=== PATIENT | male | born 1950 | race Caucasian/White ===

== ENCOUNTER 2019-05-22 14:04 | Inpatient (IN) | payer MEDICARE, MEDICAID ==
[2019-05-22] MEDS ORDERED: Sodium Chloride 0.9% 1,000 ML IV ONE (14:18)
--- NOTE | 2019-05-22 14:22 | ED Physician Chart ---
ED Chief Complaint/HPI - Patient Information Date Seen:: 05/22/19 Time Seen:: 14:10 Chief Complaint:: Weakness History of Present Illness:: onset x 2 days of weakness and fatigue; no report of trauma, H/As, neck pain, cough, C/P, SOB, Abd. Pain, A/N/V/D/C, fever, chills, or urinary s/s Historian:: Patient, EMS Review:: Nurse's Note Reviewed, Old Chart Reviewed, EMS run form Reviewed ED Review of Systems - Review of Systems General/Constitutional: No fever, No chills, No weight loss, Weakness, No diaphoresis, No edema, No loss of appetite Skin: No skin lesions, No rash, No bruising Head: No headache, No light-headedness Eyes: No loss of vision, No pain, No diplopia ENT: No earache, No nasal drainage, No sore throat, No tinnitus Neck: No neck pain, No swelling, No thyromegaly, No stiffness, No mass noted Cardio Vascular: No chest pain, No palpitations, No PND, No orthopnea, No edema Pulmonary: No SOB, No cough, No sputum, No wheezing GI: No nausea, No vomiting, No diarrhea, No pain, No melena, No hematochezia, No constipation, No hematemesis G/U: No dysuria, No frequency, No hematuria Musculoskeletal: No bone or joint pain, No back pain, No muscle pain Endocrine: No polyuria, No polydipsia Psychiatric: No prior psych history, No depression, No anxiety, No suicidal ideation, No homicidal ideation, No auditory hallucination, No visual hallucination Hematopoietic: No bruising, No lymphadenopathy Allergic/Immuno: No urticaria, No angioedema Neurological: No syncope, No focal symptoms, Weakness, No paresthesia, No headache, No seizure, No dizziness, No confusion, No vertigo ED Past Medical History - Past Medical History Obtainable: Yes Past Medical History: HTN Family History: HTN Social History: Non Smoker, No Alcohol, No Drug Use, Single, Care Facility Surgical History: None Psychiatricy History: None Medication: Reviewed Family Medical History - Family Member Mother History Unknown: Yes ED Physical Exam - Physical Examination General/Constitutional: Awake, Well-developed, well-nourished, Alert, No distress, GCS 15, Non-toxic appearing, Ambulatory Head: Atraumatic Eyes: Lids, conjuctiva normal, PERRL, EOMI Skin: Nl inspection, No rash, No skin lesions, No ecchymosis, Well hydrated, No lymphadenopathy ENMT: External ears, nose nl, TM canals nl, Nasal exam nl, Lips, teeth, gums nl , Oropharynx nl, Tonsils nl Neck: Nontender, Full ROM w/o pain, No JVD, No nuchal rigidity, No bruit, No mass, No stridor Respiratory: Nl effort/Exclusion, Clear to Auscultation, No Wheeze/Rhonchi/Rales Cardio Vascular: RRR, No murmur, gallop, rubs, NL S1 S2, Carotid/Femoral/Distal pulses equal bilaterally GI: No tenderness/rebounding/guarding, No organomegaly, No hernia, Normal BS's, Nondistended, No mass/bruits, No McBurney tenderness, Rectum exam nl : No CVA tenderness Extremities: No tenderness or effusion, Full ROM, normal strength in all extremities, No edema, Normal digits & nails Neuro/Psych: Alert/oriented, DTR's symmetric, Normal sensory exam, Normal motor strength, Judgement/insight normal, Mood normal, Normal gait, No focal deficits Misc: Normal back, No paraspinal tenderness ED Labs/Radiology/EKG Results - Lab Results Comments:: Reviewed - Radiology Results Comments:: Reviewed; NAD - EKG Interpretations EKG Time:: 14:54 Rate & Rhythm: 68; NSR Comments:: non-specific st-t changes ED Septic Shock - . Is Septic Shock (SBP<90, OR Lactate>4 mmol\L) present?: No ED Reassessment (Disposition) - Reassessment Reassessment Condition:: Improved - Diagnosis Diagnosis:: Weakness; Elevated Lactic Acid; Lactic Acidosis; Elevated Troponin; Hypoalbuminemia; Hypotension; Dehydration; Hypovolemia; UTI; Sepsis - Aftercare/Follow up Instructions Aftercare/Follow-Up Instructions:: Counseled pt regarding lab results/diagnosis & need follow up, Counseled pt & family regarding lab results/diagnosis & need follow up - Patient Disposition Discharge/Transfer:: Acute Care w/in this hosp Accepting Physician:: Dr. Milner Time Called:: 1600 Time Responded:: 16:00 Admitted to:: Telemetry Spoke to:: Dr. Milner Admitting Medical Physician:: Dr. Milner Condition at Disposition:: Stable, Improved
[2019-05-22 14:43] LABS: % BASOPHILS 0.3 % (0.0-2.0); % EOSINOPHILS 1.1 % (0.0-5.0); % LYMPHOCYTES 18.3 % (20.0-50.0); % MONOCYTES 6.9 % (2.0-10.0); % NEUTROPHILS 73.4 % (40.0-80.0); EOSINOPHILE ABSOLUTE 0.1 Th/cmm (0.1-0.4); HEMATOCRIT 42.6 % (41.0-60); HEMOGLOBIN 14.4 gm/dL (12-16); MEAN CORPUSCULAR HEMOGLOBIN 30.7 pg (27.0-31.0); MEAN CORPUSCULAR HGB CONC 33.7 pg (28.0-36.0); MONOCYTE ABSOLUTE 0.7 Th/cmm (0.3-1.0); PLATELET COUNT 284 Th/cmm (150-400); RED BLOOD COUNT 4.68 Mil/cmm (3.80-5.80); WHITE BLOOD COUNT 10.8 Th/cmm (4.8-10.8)
[2019-05-22 14:54] LABS: INR 0.96 (0.5-1.4)
[2019-05-22 14:58] LABS: ALB/GLOB RATIO 1.1 (1.0-1.8); ALBUMIN 3.8 gm/dL (4.2-5.5); ALKALINE PHOSPHATASE 88 U/L (34-104); AMYLASE SERUM 24 U/L (29-103); ANION GAP 12.8 (7.0-16.0); BILIRUBIN,TOTAL 0.2 mg/dL (0.3-1.0); BUN - UREA NITROGEN 19 mg/dL (7-25); CALCIUM SERUM 9.5 mg/dL (8.6-10.3); CARBON DIOXIDE 28.1 mEq/L (21.0-31.0); CHLORIDE 100 mEq/L (98-107); CREATININE - SERUM 0.8 mg/dL (0.7-1.3); CREATININE KINASE 73 U/L (30-223); GFR AFRICAN-AMERICAN > 60.0 ml/min (>90); GFR NON AFRICAN-AMERICAN > 60.0 ml/min; GLUCOSE 134 mg/dL (70-105); LIPASE 6 U/L (11-82); POTASSIUM SERUM 3.9 mEq/L (3.5-5.1); SGOT 9 U/L (13-39); SGPT/ALT 7 U/L (7-52); SODIUM SERUM 137 mEq/L (136-145); TOTAL PROTEIN,SERUM 7.2 gm/dL (6.0-8.3)
[2019-05-22 16:04] LABS: URINE SOURCE MIDSTREAM
[2019-05-22 16:05] LABS: URINE BILIRUBIN NEGATIVE (NEGATIVE); URINE BLOOD NEGATIVE (NEGATIVE); URINE GLUCOSE (UA) NEGATIVE (NEGATIVE); URINE KETONE NEGATIVE (NEGATIVE); URINE LEUKOCYTE ESTERASE NEGATIVE (NEGATIVE); URINE NITRATE NEGATIVE (NEGATIVE); URINE PH 7.5 (4.6 - 8.0); URINE PROTEIN NEGATIVE (NEGATIVE)
[2019-05-22 16:14] LABS: URINE CLARITY HAZY (CLEAR); URINE COLOR YELLOW; URINE MICROSCOPIC INDICATED? YES
[2019-05-22 16:16] LABS: URINE BACTERIA 1+ /hpf (NONE SEEN); URINE EPITHELIAL CELLS MODERATE /lpf (FEW); URINE RBC 0-2 /hpf (0-5)
[2019-05-22] MEDS ORDERED: cefTRIAXone 1 GM in Sodium Chloride 0.9% 50 ML IV ONE (16:24)
[2019-05-22] MEDS: 0.45% NS w/20 mEq KCl 1,000 ML IV SCH (20:45)
[2019-05-22] MEDS ORDERED: GLUCAGON HCl 1 MG KIT IM PRN (21:37)
[2019-05-22] MEDS ORDERED: Dextrose 50% 50 mL Abboject IVP PRN (21:37)
--- NOTE | 2019-05-22 22:53 | History & Physical ---
ADMIT DATE: 05/22/2019 CHIEF COMPLAINT: Confusion, generalized weakness. HISTORY OF PRESENT ILLNESS: The patient is a 69-year-old male with long history of hypertension, benign prostatic hypertrophy, dementia and psychosis, presented to the Emergency Room with generalized weakness, confusion. Initial workup significant for urinary infection, dehydration, admitted to the hospital, started on IV fluid, antibiotic, resume his home medication. The patient is a poor historian. PAST MEDICAL HISTORY: Significant for diabetes mellitus, hypertension, benign prostatic hypertrophy, and dementia. PAST SURGICAL HISTORY: No recent surgery. ALLERGIES: None. MEDICATIONS: Follow admission reconciliation. SOCIAL HISTORY: No smoking, no alcohol, no drug. FAMILY HISTORY: Noncontributory. REVIEW OF SYSTEMS: RENAL SYSTEM: No history of chronic renal disorder. CARDIOVASCULAR SYSTEM: He has history of hypertension. ENDOCRINE SYSTEM: He has history of diabetes mellitus. GASTROINTESTINAL SYSTEM: No upper or lower GI bleed. NEUROLOGICAL SYSTEM: No seizure disorder. SKELETOMUSCULAR SYSTEM: No muscular dystrophy. HEMATOLOGICAL SYSTEM: No bleeding tendencies. RESPIRATORY SYSTEM: No asthma. GENITOURINARY SYSTEM: No hematuria. Has benign prostatic hypertrophy. PHYSICAL EXAMINATION: GENERAL: He is awake, alert, confused. VITAL SIGNS: Temperature 97.5, heart rate 72, blood pressure 197/68. HEENT: Normocephalic. Pupils reactive to light and accommodation. Sclerae clear. NECK: Supple. Negative for lymphadenopathy, JVD or bruit. CHEST: Air bilaterally normal. No rhonchi or wheezing. HEART: S1, S2 normal. No gallop rhythm. ABDOMEN: Soft, bowel sounds positive. EXTREMITIES: No edema. NEUROLOGICAL: He is awake, coherent. No focal muscle deficits. LABORATORY DATA: White blood cell 10.8, hemoglobin 14.4, hematocrit 42.6, platelet is 284. Sodium 137, potassium 3.9, BUN 19, creatinine 0.8. Lactic acid 2.28. ASSESSMENT: 1. Lactic acidosis. 2. Urinary infection. 3. Dehydration. 4. Metabolic encephalopathy. 5. Diabetes mellitus. 6. Hypertension. 7. Benign prostatic hypertrophy. 8. History of dementia. PLAN: The patient is in the hospital under Dr. Milner's service, started on IV fluid, antibiotic, resume his home medication and diet, sliding scale with regular insulin coverage, Lovenox 40 subQ daily for DVT prophylaxis. The patient is a full code. [facility]# [id number]
[2019-05-23 05:48] VITALS: BP 124/78
[2019-05-23] MEDS: INSULIN LISPRO SLIDING SCALE 100 UNITS/ML UNIT SUBQ SCH ×4 (06:33→20:44)
[2019-05-23] MEDS: Lactulose 10 Gm/15 mL 30mL UDC PO SCH (08:57)
[2019-05-23] MEDS: Enoxaparin 40 mg/0.4 mL 0.4mL Syr SUBQ SCH (08:57)
[2019-05-23] MEDS ORDERED: [UNRECOGNIZED DRUG - OTHER] TP SCH (09:00)
[2019-05-23] MEDS ORDERED: CICLOPIROX TP SCH (09:00)
[2019-05-23] MEDS ORDERED: SKIN CLEANSER NO 40 TP SCH (09:00)
[2019-05-23] MEDS ORDERED: Non-Formulary Item 1 EA (Lactulose [Lactulose] 30 ML) PO SCH (09:00)
--- NOTE | 2019-05-23 10:25 | Diagnostic Imaging Report ---
Portable chest x-ray HISTORY: Pain There is a poor inspiration. Heart size difficult to assess. No acute focal bony processes. Mild deformity involves the lateral aspects of the left third, fourth, fifth, sixth ribs. Findings may be associated with old fractures. However, dedicated rib radiographs of provide additional detail and assessment. IMPRESSION: 1. No acute pulmonary parenchymal processes 2. Fractures left ribs. These may be chronic. However, dedicated rib radiographs would provide additional assessment.
[2019-05-23] MEDS: 0.45% NS w/20 mEq KCl 1,000 ML IV SCH (13:54)
[2019-05-23] MEDS: cefTRIAXone 1 GM in Sodium Chloride 0.9% 50 ML IV SCH (16:25)
--- NOTE | 2019-05-23 18:26 | Internal Medicine Prog Note ---
Internal Medicine Subjective - Subjective Service Date: 05/23/19 Patient seen and examined:: with staff Patient is:: awake, verbal, confused Per staff patient has:: no adverse event, eating well, tolerating meds Internal Medicine Objective - Results Result Diagrams: 05/22/19 14:30 05/22/19 14:30 Recent Labs: Laboratory Last Values WBC 10.8 Th/cmm (4.8-10.8) 05/22/19 14:30 RBC 4.68 Mil/cmm (3.80-5.80) 05/22/19 14:30 Hgb 14.4 gm/dL (12-16) 05/22/19 14:30 Hct 42.6 % (41.0-60) 05/22/19 14:30 MCV 91.0 fl (80-99) 05/22/19 14:30 MCH 30.7 pg (27.0-31.0) 05/22/19 14:30 MCHC Differential 33.7 pg (28.0-36.0) 05/22/19 14:30 RDW 13.0 % (11.5-20.0) 05/22/19 14:30 Plt Count 284 Th/cmm (150-400) 05/22/19 14:30 MPV 8.6 fl 05/22/19 14:30 Neutrophils % 73.4 % (40.0-80.0) 05/22/19 14:30 Lymphocytes % 18.3 % (20.0-50.0) L 05/22/19 14:30 Monocytes % 6.9 % (2.0-10.0) 05/22/19 14:30 Eosinophils % 1.1 % (0.0-5.0) 05/22/19 14:30 Basophils % 0.3 % (0.0-2.0) 05/22/19 14:30 PT 10.0 SECONDS (9.5-11.5) 05/22/19 14:30 INR 0.96 (0.5-1.4) 05/22/19 14:30 PTT (Actin FS) 23.6 SECONDS (26.0-38.0) L 05/22/19 14:30 Sodium 137 mEq/L (136-145) 05/22/19 14:30 Potassium 3.9 mEq/L (3.5-5.1) 05/22/19 14:30 Chloride 100 mEq/L (98-107) 05/22/19 14:30 Carbon Dioxide 28.1 mEq/L (21.0-31.0) 05/22/19 14:30 Anion Gap 12.8 (7.0-16.0) 05/22/19 14:30 BUN 19 mg/dL (7-25) 05/22/19 14:30 Creatinine 0.8 mg/dL (0.7-1.3) 05/22/19 14:30 Est GFR ( Amer) > 60.0 ml/min (>90) 05/22/19 14:30 Est GFR (Non-Af Amer) > 60.0 ml/min 05/22/19 14:30 BUN/Creatinine Ratio 23.8 05/22/19 14:30 Glucose 134 mg/dL (70-105) H 05/22/19 14:30 POC Glucose 88 MG/DL (70 - 105) 05/23/19 16:08 Whole Bld Lactic Acid 2.37 mmol/L (0.60-1.99) H* 05/22/19 16:30 Calcium 9.5 mg/dL (8.6-10.3) 05/22/19 14:30 Total Bilirubin 0.2 mg/dL (0.3-1.0) L 05/22/19 14:30 AST 9 U/L (13-39) L 05/22/19 14:30 ALT 7 U/L (7-52) 05/22/19 14:30 Alkaline Phosphatase 88 U/L (34-104) 05/22/19 14:30 Creatine Kinase 73 U/L (30-223) 05/22/19 14:30 Troponin I 0.08 ng/mL (0.01-0.05) H* 05/22/19 14:30 Total Protein 7.2 gm/dL (6.0-8.3) 05/22/19 14:30 Albumin 3.8 gm/dL (4.2-5.5) L 05/22/19 14:30 Globulin 3.4 gm/dL 05/22/19 14:30 Albumin/Globulin Ratio 1.1 (1.0-1.8) 05/22/19 14:30 Amylase 24 U/L (29-103) L 05/22/19 14:30 Lipase 6 U/L (11-82) L 05/22/19 14:30 Urine Source MIDSTREAM 05/22/19 15:00 Urine Color YELLOW 05/22/19 15:00 Urine Clarity HAZY (CLEAR) 05/22/19 15:00 Urine pH 7.5 (4.6 - 8.0) 05/22/19 15:00 Ur Specific [place] 1.015 (1.005-1.030) 05/22/19 15:00 Urine Protein NEGATIVE mg/dL (NEGATIVE) 05/22/19 15:00 Urine Glucose (UA) NEGATIVE mg/dL (NEGATIVE) 05/22/19 15:00 Urine Ketones NEGATIVE mg/dL (NEGATIVE) 05/22/19 15:00 Urine Blood NEGATIVE (NEGATIVE) 05/22/19 15:00 Urine Nitrate NEGATIVE (NEGATIVE) 05/22/19 15:00 Urine Bilirubin NEGATIVE (NEGATIVE) 05/22/19 15:00 Urine Urobilinogen 1.0 E.U./dL (0.2 - 1.0) 05/22/19 15:00 Ur Leukocyte Esterase NEGATIVE (NEGATIVE) 05/22/19 15:00 Urine RBC 0-2 /hpf (0-5) H 05/22/19 15:00 Urine WBC 2-5 /hpf (0-5) 05/22/19 15:00 Ur Epithelial Cells MODERATE /lpf (FEW) 05/22/19 15:00 Urine Bacteria 1+ /hpf (NONE SEEN) H 05/22/19 15:00 Urine Mucus FEW /lpf (FEW) 05/22/19 15:00 - Physical Exam Vitals and I&O: Vital Signs Temp 97.6 F 05/23/19 16:00 Pulse 64 05/23/19 16:24 Resp 18 05/23/19 16:00 BP 126/74 05/23/19 16:24 Pulse Ox 97 05/23/19 16:00 Intake & Output 05/22/19 05/23/19 05/23/19 18:59 06:59 18:59 Intake Total 229 022 7140 Balance 235 092 8624 Weight (lbs) 88.451 kg 86.636 kg Intake: Intake, IV Amount 500 1000 0.45% NS w/20 mEq KCl 1, 1000 000 ml @ 75 mls/hr IV . [id number] [facility] Rx#:[id number] Oral 120 Other: # Voids 3 Weight Source Estimated Bedscale Active Medications: Current Medications Cholecalciferol (Vitamin D3) 1,000 iu PO DAILY [facility] Stop: 07/22/19 08:59 Last Admin: 05/23/19 08:56 Dose: 1,000 iu Dextrose (D50w) 50 ml IVP PRN PRN PRN Reason: Blood Glucose less than 70 Stop: 07/21/19 21:36 Dextrose (Glutose 40%) 18.75 gm PO PRN PRN PRN Reason: Blood Glucose less than 70 Stop: 07/21/19 21:36 Divalproex Sodium (Depakote Dr) 500 mg PO BID [facility]; Protocol Stop: 07/22/19 08:59 Last Admin: 05/23/19 16:24 Dose: 500 mg Donepezil HCl (Aricept) 10 mg PO HS [facility] Stop: 07/22/19 20:59 Enoxaparin Sodium (Lovenox) 40 mg SUBQ DAILY [facility] Stop: 07/22/19 08:59 Last Admin: 05/23/19 08:57 Dose: 40 mg Gabapentin (Neurontin) 300 mg PO TID [facility] Stop: 07/22/19 08:59 Last Admin: 05/23/19 13:54 Dose: 300 mg Glucagon (Glucagen) 1 mg IM PRN PRN PRN Reason: Blood Glucose less than 70 Stop: 07/21/19 21:36 Ceftriaxone Sodium 1 gm/ (Sodium Chloride) 50 mls @ 100 mls/hr IV Q24HR [facility] Stop: 07/22/19 16:59 Last Admin: 05/23/19 16:25 Dose: 100 mls/hr Potassium Chloride/Sodium Chloride (0.45% Ns W/20 Meq Kcl) 1,000 mls @ 75 mls/ hr IV .[id number] [facility] Stop: 07/21/19 20:07 Last Admin: 05/23/19 13:54 Dose: 75 mls/hr Insulin Human Lispro (Humalog Insulin Sliding Scale) 0 units SUBQ ACHS [facility]; Protocol Stop: 07/22/19 07:29 Last Admin: 05/23/19 16:14 Dose: Not Given Lactulose (Cephulac) 20 gm PO DAILY [facility] Stop: 07/22/19 08:59 Last Admin: 05/23/19 08:57 Dose: 20 gm Lisinopril (Zestril) 5 mg PO DAILY [facility] Stop: 07/22/19 08:59 Last Admin: 05/23/19 08:56 Dose: 5 mg Metformin HCl (Glucophage) 1,000 mg PO BID [facility] Stop: 07/22/19 08:59 Last Admin: 05/23/19 16:25 Dose: Not Given Metoprolol Tartrate (Lopressor) 12.5 mg PO BID [facility] Stop: 07/22/19 08:59 Last Admin: 05/23/19 16:24 Dose: 12.5 mg Mirtazapine (Remeron) 15 mg PO HS [facility]; Protocol Stop: 07/22/19 20:59 Miscellaneous (Ciclopirox/Skin Cleanser No.40 [Loprox 0.77% Suspension Kit]) 1 each TP BID [facility] Stop: 07/22/19 08:59 Risperidone (Risperdal) 0.5 mg PO BID [facility]; Protocol Stop: 07/22/19 08:59 Last Admin: 05/23/19 16:25 Dose: 0.5 mg Tamsulosin HCl (Flomax) 0.4 mg PO HS [facility] Stop: 07/22/19 20:59 General: alert, demented HEENT: NC/AT, PERRLA, EOMI, anicteric sclerae, throat clear Neck: Supple, No JVD, No thyromegaly, +2 carotid pulse wo bruit, No LAD Lungs: CTAB Cardiovascular: RRR, Normal S1, Normal S2, without murmur Abdomen: soft, non-tender, non-distended Extremities: clear Neurological: no change, bedbound Internal Medicine Assmt/Plan - Assessment Assessment: 1.METABOLIC ENCEPHALOPATHY. 2.DEHYDRATION. 3.UTI. 4.DM. - Plan Plan: CBC AND CHEM16 IN AM.CONTINUE CURRENT MEDICATION AND DIET
[2019-05-24] MEDS: 0.45% NS w/20 mEq KCl 1,000 ML IV SCH ×2 (05:36→20:39)
[2019-05-24] MEDS: INSULIN LISPRO SLIDING SCALE 100 UNITS/ML UNIT SUBQ SCH ×4 (08:19→20:44)
[2019-05-24] MEDS: Enoxaparin 40 mg/0.4 mL 0.4mL Syr SUBQ SCH (09:11)
[2019-05-24] MEDS: Lactulose 10 Gm/15 mL 30mL UDC PO SCH (09:13)
[2019-05-24] MEDS ORDERED: Probiotic Screen MC PRN (11:00)
[2019-05-24 12:10] LABS: % BASOPHILS 0.2 % (0.0-2.0); % LYMPHOCYTES 22.5 % (20.0-50.0); % NEUTROPHILS 69.3 % (40.0-80.0); EOSINOPHILE ABSOLUTE 0.2 Th/cmm (0.1-0.4); LYMPHOCYTE ABSOLUTE 1.5 Th/cmm (1.5-3.0); MEAN CORPUSCULAR HEMOGLOBIN 30.3 pg (27.0-31.0); MONOCYTE ABSOLUTE 0.3 Th/cmm (0.3-1.0); NEUTROPHILE ABSOLUTE 4.7 Th/cmm (1.8-8.0); PLATELET COUNT 297 Th/cmm (150-400); RED BLOOD COUNT 4.61 Mil/cmm (3.80-5.80); RED CELL DISTRIBUTION WIDTH 13.2 % (11.5-20.0); WHITE BLOOD COUNT 6.7 Th/cmm (4.8-10.8)
[2019-05-24 12:18] LABS: ALBUMIN 3.4 gm/dL (4.2-5.5); ALKALINE PHOSPHATASE 79 U/L (34-104); ANION GAP 10.1 (7.0-16.0); BILIRUBIN,TOTAL 0.2 mg/dL (0.3-1.0); BUN - UREA NITROGEN 13 mg/dL (7-25); CALCIUM SERUM 9.1 mg/dL (8.6-10.3); CARBON DIOXIDE 28.4 mEq/L (21.0-31.0); CHLORIDE 104 mEq/L (98-107); CREATININE - SERUM 0.8 mg/dL (0.7-1.3); GFR AFRICAN-AMERICAN > 60.0 ml/min (>90); GFR NON AFRICAN-AMERICAN > 60.0 ml/min; GLUCOSE 150 mg/dL (70-105); POTASSIUM SERUM 4.5 mEq/L (3.5-5.1); SGOT 10 U/L (13-39); SGPT/ALT 6 U/L (7-52); SODIUM SERUM 138 mEq/L (136-145); TOTAL PROTEIN,SERUM 6.8 gm/dL (6.0-8.3)
--- NOTE | 2019-05-24 18:35 | Internal Medicine Prog Note ---
Internal Medicine Subjective - Subjective Service Date: 05/24/19 Patient seen and examined:: with staff (HE IS EATING WELL) Patient is:: awake, verbal, confused Per staff patient has:: no adverse event, eating well, tolerating meds Internal Medicine Objective - Results Result Diagrams: 05/24/19 11:45 05/24/19 11:45 Recent Labs: Laboratory Last Values WBC 6.7 Th/cmm (4.8-10.8) 05/24/19 11:45 RBC 4.61 Mil/cmm (3.80-5.80) 05/24/19 11:45 Hgb 14.0 gm/dL (12-16) 05/24/19 11:45 Hct 41.0 % (41.0-60) 05/24/19 11:45 MCV 89.0 fl (80-99) 05/24/19 11:45 MCH 30.3 pg (27.0-31.0) 05/24/19 11:45 MCHC Differential 34.0 pg (28.0-36.0) 05/24/19 11:45 RDW 13.2 % (11.5-20.0) 05/24/19 11:45 Plt Count 297 Th/cmm (150-400) 05/24/19 11:45 MPV 8.3 fl 05/24/19 11:45 Neutrophils % 69.3 % (40.0-80.0) 05/24/19 11:45 Lymphocytes % 22.5 % (20.0-50.0) 05/24/19 11:45 Monocytes % 5.0 % (2.0-10.0) 05/24/19 11:45 Eosinophils % 3.0 % (0.0-5.0) 05/24/19 11:45 Basophils % 0.2 % (0.0-2.0) 05/24/19 11:45 PT 10.0 SECONDS (9.5-11.5) 05/22/19 14:30 INR 0.96 (0.5-1.4) 05/22/19 14:30 PTT (Actin FS) 23.6 SECONDS (26.0-38.0) L 05/22/19 14:30 Sodium 138 mEq/L (136-145) 05/24/19 11:45 Potassium 4.5 mEq/L (3.5-5.1) 05/24/19 11:45 Chloride 104 mEq/L (98-107) 05/24/19 11:45 Carbon Dioxide 28.4 mEq/L (21.0-31.0) 05/24/19 11:45 Anion Gap 10.1 (7.0-16.0) 05/24/19 11:45 BUN 13 mg/dL (7-25) 05/24/19 11:45 Creatinine 0.8 mg/dL (0.7-1.3) 05/24/19 11:45 Est GFR ( Amer) > 60.0 ml/min (>90) 05/24/19 11:45 Est GFR (Non-Af Amer) > 60.0 ml/min 05/24/19 11:45 BUN/Creatinine Ratio 16.3 05/24/19 11:45 Glucose 150 mg/dL (70-105) H 05/24/19 11:45 POC Glucose 94 MG/DL (70 - 105) 05/24/19 17:06 Whole Bld Lactic Acid 2.37 mmol/L (0.60-1.99) H* 05/22/19 16:30 Calcium 9.1 mg/dL (8.6-10.3) 05/24/19 11:45 Total Bilirubin 0.2 mg/dL (0.3-1.0) L 05/24/19 11:45 AST 10 U/L (13-39) L 05/24/19 11:45 ALT 6 U/L (7-52) L 05/24/19 11:45 Alkaline Phosphatase 79 U/L (34-104) 05/24/19 11:45 Creatine Kinase 73 U/L (30-223) 05/22/19 14:30 Troponin I 0.08 ng/mL (0.01-0.05) H* 05/22/19 14:30 Total Protein 6.8 gm/dL (6.0-8.3) 05/24/19 11:45 Albumin 3.4 gm/dL (4.2-5.5) L 05/24/19 11:45 Globulin 3.4 gm/dL 05/24/19 11:45 Albumin/Globulin Ratio 1.0 (1.0-1.8) 05/24/19 11:45 Amylase 24 U/L (29-103) L 05/22/19 14:30 Lipase 6 U/L (11-82) L 05/22/19 14:30 Urine Source MIDSTREAM 05/22/19 15:00 Urine Color YELLOW 05/22/19 15:00 Urine Clarity HAZY (CLEAR) 05/22/19 15:00 Urine pH 7.5 (4.6 - 8.0) 05/22/19 15:00 Ur Specific [place] 1.015 (1.005-1.030) 05/22/19 15:00 Urine Protein NEGATIVE mg/dL (NEGATIVE) 05/22/19 15:00 Urine Glucose (UA) NEGATIVE mg/dL (NEGATIVE) 05/22/19 15:00 Urine Ketones NEGATIVE mg/dL (NEGATIVE) 05/22/19 15:00 Urine Blood NEGATIVE (NEGATIVE) 05/22/19 15:00 Urine Nitrate NEGATIVE (NEGATIVE) 05/22/19 15:00 Urine Bilirubin NEGATIVE (NEGATIVE) 05/22/19 15:00 Urine Urobilinogen 1.0 E.U./dL (0.2 - 1.0) 05/22/19 15:00 Ur Leukocyte Esterase NEGATIVE (NEGATIVE) 05/22/19 15:00 Urine RBC 0-2 /hpf (0-5) H 05/22/19 15:00 Urine WBC 2-5 /hpf (0-5) 05/22/19 15:00 Ur Epithelial Cells MODERATE /lpf (FEW) 05/22/19 15:00 Urine Bacteria 1+ /hpf (NONE SEEN) H 05/22/19 15:00 Urine Mucus FEW /lpf (FEW) 05/22/19 15:00 - Physical Exam Vitals and I&O: Vital Signs Temp 97.2 F 05/24/19 16:00 Pulse 53 05/24/19 16:00 Resp 17 05/24/19 16:00 BP 91/60 05/24/19 16:00 Pulse Ox 96 05/24/19 16:00 Intake & Output 05/23/19 05/24/19 05/24/19 18:59 06:59 18:59 Intake Total 1500 1120 Balance 1500 1120 Weight (lbs) 86.636 kg 86.636 kg Intake: Intake, IV Amount 1000 1000 0.45% NS w/20 mEq KCl 1, 1000 1000 000 ml @ 75 mls/hr IV . [id number] [facility] Rx#:[id number] Oral 500 120 Other: # Voids 3 4 # Bowel Movements 1 Weight Source Bedscale Bedscale Active Medications: Current Medications Cholecalciferol (Vitamin D3) 1,000 iu PO DAILY [facility] Stop: 07/22/19 08:59 Last Admin: 05/24/19 09:11 Dose: 1,000 iu Dextrose (D50w) 50 ml IVP PRN PRN PRN Reason: Blood Glucose less than 70 Stop: 07/21/19 21:36 Dextrose (Glutose 40%) 18.75 gm PO PRN PRN PRN Reason: Blood Glucose less than 70 Stop: 07/21/19 21:36 Divalproex Sodium (Depakote Dr) 500 mg PO BID [facility]; Protocol Stop: 07/22/19 08:59 Last Admin: 05/24/19 17:26 Dose: 500 mg Donepezil HCl (Aricept) 10 mg PO HS [facility] Stop: 07/22/19 20:59 Last Admin: 05/23/19 20:43 Dose: 10 mg Enoxaparin Sodium (Lovenox) 40 mg SUBQ DAILY [facility] Stop: 07/22/19 08:59 Last Admin: 05/24/19 09:11 Dose: 40 mg Gabapentin (Neurontin) 300 mg PO TID [facility] Stop: 07/22/19 08:59 Last Admin: 05/24/19 15:00 Dose: 300 mg Glucagon (Glucagen) 1 mg IM PRN PRN PRN Reason: Blood Glucose less than 70 Stop: 07/21/19 21:36 Ceftriaxone Sodium 1 gm/ (Sodium Chloride) 50 mls @ 100 mls/hr IV Q24HR [facility] Stop: 07/22/19 16:59 Last Admin: 05/23/19 16:25 Dose: 100 mls/hr Potassium Chloride/Sodium Chloride (0.45% Ns W/20 Meq Kcl) 1,000 mls @ 75 mls/ hr IV .[id number] [facility] Stop: 07/21/19 20:07 Last Admin: 05/24/19 05:36 Dose: 75 mls/hr Insulin Human Lispro (Humalog Insulin Sliding Scale) 0 units SUBQ ACHS [facility]; Protocol Stop: 07/22/19 07:29 Last Admin: 05/24/19 17:14 Dose: Not Given Lactobacillus Rhamnosus (Culturelle 15b) 1 each PO DAILY [facility] Stop: 07/24/19 08:59 Lactulose (Cephulac) 20 gm PO DAILY [facility] Stop: 07/22/19 08:59 Last Admin: 05/24/19 09:13 Dose: 20 gm Lisinopril (Zestril) 5 mg PO DAILY [facility] Stop: 07/22/19 08:59 Last Admin: 05/24/19 09:10 Dose: 5 mg Metformin HCl (Glucophage) 1,000 mg PO BID [facility] Stop: 07/22/19 08:59 Last Admin: 05/24/19 17:26 Dose: 1,000 mg Metoprolol Tartrate (Lopressor) 12.5 mg PO BID [facility] Stop: 07/22/19 08:59 Last Admin: 05/24/19 17:27 Dose: Not Given Mirtazapine (Remeron) 15 mg PO [facility]; Protocol Stop: 07/22/19 20:59 Last Admin: 05/23/19 20:43 Dose: 15 mg Miscellaneous (Ciclopirox/Skin Cleanser No.40 [Loprox 0.77% Suspension Kit]) 1 each TP BID [facility] Stop: 07/22/19 08:59 Miscellaneous (Probiotic Screen) 1 ea MC PRN PRN PRN Reason: PROTOCOL Stop: 07/23/19 10:59 Mupirocin (Bactroban Oint) 1 appl NS BID [facility] Stop: 05/29/19 17:01 Risperidone (Risperdal) 0.5 mg PO BID [facility]; Protocol Stop: 07/22/19 08:59 Last Admin: 05/24/19 17:26 Dose: 0.5 mg Tamsulosin HCl (Flomax) 0.4 mg PO [facility] Stop: 07/22/19 20:59 Last Admin: 05/23/19 20:43 Dose: 0.4 mg General: alert, demented HEENT: NC/AT, PERRLA, EOMI, anicteric sclerae, throat clear Neck: Supple, No JVD, No thyromegaly, +2 carotid pulse wo bruit, No LAD Lungs: CTAB Cardiovascular: RRR, Normal S1, Normal S2, without murmur Abdomen: soft, non-tender, non-distended Extremities: clear Neurological: no change, bedbound Internal Medicine Assmt/Plan - Assessment Assessment: 1.METABOLIC ENCEPHALOPATHY. 2.DEHYDRATION. 3.UTI. 4.DM. - Plan Plan: CBC AND CHEM16 IN AM.CONTINUE CURRENT MEDICATION AND DIET Nutritional Asmnt/Malnutr-PDOC - Dietary Evaluation Malnutrition Findings (Please click <Entered> for more info): Nutritional Asmnt/Malnutrition Start: 05/24/19 14: 42 Text: Status: Complete Freq: Protocol: Document 05/24/19 14:42 [place] (Rec: 05/24/19 14:53 [place] [email or web address]) Nutritional Asmnt/Malnutrition Patient General Information Nutritional Screening Moderate Risk Diagnosis UTI Pertinent Medical Hx/Surgical Hx HTN, DM, benign prostatic hypertrophy, dementia, psychosis Subjective Information Pt is a 69-year-old male admitted on 05/22 c/o confusion and generalized weakness. Per Meal/Nutrition Activity Record, Pt PO intake 75% meals on 05/23. Per NEREIDA Wahl, Pt ate 75-100% breakfast and lunch today 05/24. HT: 59 WT: 191 LB (86.82kg) ADJ BW: 77.15 kg BMI: 28.21 (Overweight) GI: Soft, Non-Tender BM: 05/24 x1 I/O: 2620/Not Noted Skin: WNL, Warm, Dry, Elastic, Intact, Reddened on RT Bunion Robert: 15 Diet Order: CCHO 45 gm Estimated Energy Needs: ( Overweight, ADJ BW) 7393-2343 kcals (20-25 kcals/ kg) 62-69g Pro (0.8-0.9 g/kg) 2482-9663 ml (25-30 ml/kg) Pt is eating 75% of meals Per Meal/Nutrition Activity Record . Dietary is currently providing an estimated 1824 kcals and 103 gm Pro, per Pt PO intake this is providing an estimated 1368 kcals and 77gm Pro to meet 90% kcal and 100+ % Pro needs- adequate. Current Diet Order/ Nutrition Support CCHO 45 gm Pertinent Medications Vitamin D3, D50w (PRN), Glutose (PRN), Glucagen, INS- SS, Glucophage, Lopressor, 0. 45% Ns w/20 Meq Kcl Pertinent Labs 05/24: POC Glucose 90, 89, 88, 111, 98 8/28: Glucose 134, Alb 3.8 Nutritional Hx/Data Height 1.75 m Height (Calculated Centimeters) 175.3 Current Weight (lbs) 86.636 kg Weight (Calculated Kilograms) 86.6 Weight (Calculated Grams) 99795.1 [place] Body Weight 70.7 kg % [place] Body Weight 123 Body Mass Index (BMI) 28.2 Weight Status Overweight GI Symptoms GI Symptoms None Last BM 05/24 x1 Skin Integrity/Comment: WNL, Warm, Dry, Elastic, Intact, Reddened on RT Bunion Robert: 15 Current %PO Good (75-100%) Estimated Nutritional Goals BEE in Kcals: Adj wt of IBW Calories/Kcals/Kg 20-25 Kcals Calculated 2390-8339 Protein: Adj wt of IBW Protein g/k.8-0.9 Protein Calculated 62-69 Fluid: ml 7814-7377 ml (25-30 ml/kg) Nutritional Problem 1. Problem Problem Impaired nutrient utilization Etiology r/t endocrine dysfunction Signs/Symptoms: aeb Hx DM and Glucose 134. Malnutrition Related to Morbid Obesity Malnutrition related to morbid obesity No Intervention/Recommendation Comments 1.Continue with [facility] 45 gm diet as ordered. 2.Continue anti-hyperglycemia medications for glucose control per MD order. Expected Outcomes/Goals Expected Outcomes/Goals 1.PO intake to continue to meet >75% of nutritional needs . 2.Monitor PO intake, wt, skin integrity, and nutrition related labs to trend WNL. 3.F/U as low risk in 7 days,
[2019-05-24] MEDS: cefTRIAXone 1 GM in Sodium Chloride 0.9% 50 ML IV SCH (18:40)
[2019-05-25] MEDS: INSULIN LISPRO SLIDING SCALE 100 UNITS/ML UNIT SUBQ SCH ×4 (06:31→21:13)
[2019-05-25] MEDS: Lactulose 10 Gm/15 mL 30mL UDC PO SCH (08:16)
[2019-05-25] MEDS: Enoxaparin 40 mg/0.4 mL 0.4mL Syr SUBQ SCH (08:17)
[2019-05-25] MEDS ORDERED: Lactobacillus Rhamnosus GG 15 Billion CFU CAP.SPRINK PO SCH (09:00)
[2019-05-25] MEDS: 0.45% NS w/20 mEq KCl 1,000 ML IV SCH (10:10)
--- NOTE | 2019-05-25 15:55 | General Progress Note ---
Subjective - Review of Systems Service Date: 05/25/19 Subjective: awake and conversant mild confusion friend at bedside Objective - Results Result Diagrams: 05/24/19 11:45 05/24/19 11:45 Recent Labs: Laboratory Last Values WBC 6.7 Th/cmm (4.8-10.8) 05/24/19 11:45 RBC 4.61 Mil/cmm (3.80-5.80) 05/24/19 11:45 Hgb 14.0 gm/dL (12-16) 05/24/19 11:45 Hct 41.0 % (41.0-60) 05/24/19 11:45 MCV 89.0 fl (80-99) 05/24/19 11:45 MCH 30.3 pg (27.0-31.0) 05/24/19 11:45 MCHC Differential 34.0 pg (28.0-36.0) 05/24/19 11:45 RDW 13.2 % (11.5-20.0) 05/24/19 11:45 Plt Count 297 Th/cmm (150-400) 05/24/19 11:45 MPV 8.3 fl 05/24/19 11:45 Neutrophils % 69.3 % (40.0-80.0) 05/24/19 11:45 Lymphocytes % 22.5 % (20.0-50.0) 05/24/19 11:45 Monocytes % 5.0 % (2.0-10.0) 05/24/19 11:45 Eosinophils % 3.0 % (0.0-5.0) 05/24/19 11:45 Basophils % 0.2 % (0.0-2.0) 05/24/19 11:45 PT 10.0 SECONDS (9.5-11.5) 05/22/19 14:30 INR 0.96 (0.5-1.4) 05/22/19 14:30 PTT (Actin FS) 23.6 SECONDS (26.0-38.0) L 05/22/19 14:30 Sodium 138 mEq/L (136-145) 05/24/19 11:45 Potassium 4.5 mEq/L (3.5-5.1) 05/24/19 11:45 Chloride 104 mEq/L (98-107) 05/24/19 11:45 Carbon Dioxide 28.4 mEq/L (21.0-31.0) 05/24/19 11:45 Anion Gap 10.1 (7.0-16.0) 05/24/19 11:45 BUN 13 mg/dL (7-25) 05/24/19 11:45 Creatinine 0.8 mg/dL (0.7-1.3) 05/24/19 11:45 Est GFR ( Amer) > 60.0 ml/min (>90) 05/24/19 11:45 Est GFR (Non-Af Amer) > 60.0 ml/min 05/24/19 11:45 BUN/Creatinine Ratio 16.3 05/24/19 11:45 Glucose 150 mg/dL (70-105) H 05/24/19 11:45 POC Glucose 88 MG/DL (70 - 105) 05/25/19 05:49 Whole Bld Lactic Acid 2.37 mmol/L (0.60-1.99) H* 05/22/19 16:30 Calcium 9.1 mg/dL (8.6-10.3) 05/24/19 11:45 Total Bilirubin 0.2 mg/dL (0.3-1.0) L 05/24/19 11:45 AST 10 U/L (13-39) L 05/24/19 11:45 ALT 6 U/L (7-52) L 05/24/19 11:45 Alkaline Phosphatase 79 U/L (34-104) 05/24/19 11:45 Creatine Kinase 73 U/L (30-223) 05/22/19 14:30 Troponin I 0.08 ng/mL (0.01-0.05) H* 05/22/19 14:30 Total Protein 6.8 gm/dL (6.0-8.3) 05/24/19 11:45 Albumin 3.4 gm/dL (4.2-5.5) L 05/24/19 11:45 Globulin 3.4 gm/dL 05/24/19 11:45 Albumin/Globulin Ratio 1.0 (1.0-1.8) 05/24/19 11:45 Amylase 24 U/L (29-103) L 05/22/19 14:30 Lipase 6 U/L (11-82) L 05/22/19 14:30 Urine Source MIDSTREAM 05/22/19 15:00 Urine Color YELLOW 05/22/19 15:00 Urine Clarity HAZY (CLEAR) 05/22/19 15:00 Urine pH 7.5 (4.6 - 8.0) 05/22/19 15:00 Ur Specific Primrose 1.015 (1.005-1.030) 05/22/19 15:00 Urine Protein NEGATIVE mg/dL (NEGATIVE) 05/22/19 15:00 Urine Glucose (UA) NEGATIVE mg/dL (NEGATIVE) 05/22/19 15:00 Urine Ketones NEGATIVE mg/dL (NEGATIVE) 05/22/19 15:00 Urine Blood NEGATIVE (NEGATIVE) 05/22/19 15:00 Urine Nitrate NEGATIVE (NEGATIVE) 05/22/19 15:00 Urine Bilirubin NEGATIVE (NEGATIVE) 05/22/19 15:00 Urine Urobilinogen 1.0 E.U./dL (0.2 - 1.0) 05/22/19 15:00 Ur Leukocyte Esterase NEGATIVE (NEGATIVE) 05/22/19 15:00 Urine RBC 0-2 /hpf (0-5) H 05/22/19 15:00 Urine WBC 2-5 /hpf (0-5) 05/22/19 15:00 Ur Epithelial Cells MODERATE /lpf (FEW) 05/22/19 15:00 Urine Bacteria 1+ /hpf (NONE SEEN) H 05/22/19 15:00 Urine Mucus FEW /lpf (FEW) 05/22/19 15:00 - Physical Exam Vitals and I&O: Vital Signs Temp 97.5 F 05/25/19 15:00 Pulse 73 05/25/19 15:00 Resp 18 05/25/19 15:00 BP 94/63 05/25/19 15:00 Pulse Ox 96 05/25/19 15:00 Intake & Output 05/24/19 05/25/19 05/25/19 18:59 06:59 18:59 Intake Total 0077 482 9368 Balance 9668 134 2350 Weight (lbs) 86.636 kg Intake: Intake, IV Amount 1000 50 1000 0.45% NS w/20 mEq KCl 1, 1000 1000 000 ml @ 75 mls/hr IV . [id number] [facility] Rx#:[id number] cefTRIAXone 1 gm In 50 Sodium Chloride 0.9% 50 ml @ 100 mls/hr IV Q24HR [facility] Rx#:[id number] Oral 120 Other: # Voids 3 # Bowel Movements 0 Weight Source Bedscale Active Medications: Current Medications Cholecalciferol (Vitamin D3) 1,000 iu PO DAILY [facility] Stop: 07/22/19 08:59 Last Admin: 05/25/19 08:15 Dose: 1,000 iu Dextrose (D50w) 50 ml IVP PRN PRN PRN Reason: Blood Glucose less than 70 Stop: 07/21/19 21:36 Dextrose (Glutose 40%) 18.75 gm PO PRN PRN PRN Reason: Blood Glucose less than 70 Stop: 07/21/19 21:36 Divalproex Sodium (Depakote Dr) 500 mg PO BID [facility]; Protocol Stop: 07/22/19 08:59 Last Admin: 05/25/19 08:15 Dose: 500 mg Donepezil HCl (Aricept) 10 mg PO HS [facility] Stop: 07/22/19 20:59 Last Admin: 05/24/19 20:39 Dose: 10 mg Enoxaparin Sodium (Lovenox) 40 mg SUBQ DAILY [facility] Stop: 07/22/19 08:59 Last Admin: 05/25/19 08:17 Dose: 40 mg Gabapentin (Neurontin) 300 mg PO TID [facility] Stop: 07/22/19 08:59 Last Admin: 05/25/19 13:35 Dose: 300 mg Glucagon (Glucagen) 1 mg IM PRN PRN PRN Reason: Blood Glucose less than 70 Stop: 07/21/19 21:36 Ceftriaxone Sodium 1 gm/ (Sodium Chloride) 50 mls @ 100 mls/hr IV Q24HR [facility] Stop: 07/22/19 16:59 Last Infusion: 05/24/19 19:10 Dose: Infused Potassium Chloride/Sodium Chloride (0.45% Ns W/20 Meq Kcl) 1,000 mls @ 75 mls/ hr IV .[id number] [facility] Stop: 07/21/19 20:07 Last Admin: 05/25/19 10:10 Dose: 75 mls/hr Insulin Human Lispro (Humalog Insulin Sliding Scale) 0 units SUBQ ACHS [facility]; Protocol Stop: 07/22/19 07:29 Last Admin: 05/25/19 11:38 Dose: Not Given Lactobacillus Rhamnosus (Culturelle 15b) 1 each PO DAILY [facility] Stop: 07/24/19 08:59 Last Admin: 05/25/19 08:16 Dose: 1 each Lactulose (Cephulac) 20 gm PO DAILY [facility] Stop: 07/22/19 08:59 Last Admin: 05/25/19 08:16 Dose: 20 gm Lisinopril (Zestril) 5 mg PO DAILY [facility] Stop: 07/22/19 08:59 Last Admin: 05/25/19 10:11 Dose: Not Given Metformin HCl (Glucophage) 1,000 mg PO BID [facility] Stop: 07/22/19 08:59 Last Admin: 05/25/19 08:15 Dose: 1,000 mg Metoprolol Tartrate (Lopressor) 12.5 mg PO BID [facility] Stop: 07/22/19 08:59 Last Admin: 05/25/19 08:17 Dose: Not Given Mirtazapine (Remeron) 15 mg PO [facility]; Protocol Stop: 07/22/19 20:59 Last Admin: 05/24/19 20:39 Dose: 15 mg Miscellaneous (Probiotic Screen) 1 ea MC PRN PRN PRN Reason: PROTOCOL Stop: 07/23/19 10:59 Mupirocin (Bactroban Oint) 1 appl NS BID [facility] Stop: 05/29/19 17:01 Last Admin: 05/25/19 10:03 Dose: 1 appl Risperidone (Risperdal) 0.5 mg PO BID [facility]; Protocol Stop: 07/22/19 08:59 Last Admin: 05/25/19 08:15 Dose: 0.5 mg Tamsulosin HCl (Flomax) 0.4 mg PO [facility] Stop: 07/22/19 20:59 Last Admin: 05/24/19 20:39 Dose: 0.4 mg General: No acute distress HEENT: EOMI Neck: Supple, JVD Cardiovascular: Regular rate, Normal S1, Normal S2 Lungs: Clear to auscultation Abdomen: Bowel sounds, Soft Assessment/Plan - Assessment Assessment: 1.METABOLIC ENCEPHALOPATHY. 2.DEHYDRATION. 3.UTI. 4.DM. - Plan Plan: stable for transfer to SNF continue IV abx encourage to drink fluids and keep hydrated continue PT/OT in SNF Nutritional Asmnt/Malnutr-PDOC - Dietary Evaluation Malnutrition Findings (Please click <Entered> for more info): Nutritional Asmnt/Malnutrition Start: 05/24/19 14: 42 Text: Status: Complete Freq: Protocol: Document 05/24/19 14:42 KATHERYN (Rec: 05/24/19 14:53 [email or web address] [email or web address]) Nutritional Asmnt/Malnutrition Patient General Information Nutritional Screening Moderate Risk Diagnosis UTI Pertinent Medical Hx/Surgical Hx HTN, DM, benign prostatic hypertrophy, dementia, psychosis Subjective Information Pt is a 69-year-old male admitted on 05/22 c/o confusion and generalized weakness. Per Meal/Nutrition Activity Record, Pt PO intake 75% meals on 05/23. Per RN Vish, Pt ate 75-100% breakfast and lunch today 05/24. HT: 59 WT: 191 LB (86.82kg) ADJ BW: 77.15 kg BMI: 28.21 (Overweight) GI: Soft, Non-Tender BM: 05/24 x1 I/O: 2620/Not Noted Skin: WNL, Warm, Dry, Elastic, Intact, Reddened on RT Bunion Robert: 15 Diet Order: CCHO 45 gm Estimated Energy Needs: ( Overweight, ADJ BW) 0869-3485 kcals (20-25 kcals/ kg) 62-69g Pro (0.8-0.9 g/kg) 1738-3128 ml (25-30 ml/kg) Pt is eating 75% of meals Per Meal/Nutrition Activity Record . Dietary is currently providing an estimated 1824 kcals and 103 gm Pro, per Pt PO intake this is providing an estimated 1368 kcals and 77gm Pro to meet 90% kcal and 100+ % Pro needs- adequate. Current Diet Order/ Nutrition Support CCHO 45 gm Pertinent Medications Vitamin D3, D50w (PRN), Glutose (PRN), Glucagen, INS- SS, Glucophage, Lopressor, 0. 45% Ns w/20 Meq Kcl Pertinent Labs 05/24: POC Glucose 90, 89, 88, 111, 98 05/22: Glucose 134, Alb 3.8 Nutritional Hx/Data Height 1.75 m Height (Calculated Centimeters) 175.3 Current Weight (lbs) 86.636 kg Weight (Calculated Kilograms) 86.6 Weight (Calculated Grams) 76954.1 [place] Body Weight 70.7 kg % [place] Body Weight 123 Body Mass Index (BMI) 28.2 Weight Status Overweight GI Symptoms GI Symptoms None Last BM 05/24 x1 Skin Integrity/Comment: WNL, Warm, Dry, Elastic, Intact, Reddened on RT Bunion Robert: 15 Current %PO Good (75-100%) Estimated Nutritional Goals BEE in Kcals: Adj wt of IBW Calories/Kcals/Kg 20-25 Kcals Calculated 3861-0052 Protein: Adj wt of IBW Protein g/k.8-0.9 Protein Calculated 62-69 Fluid: ml 0718-0066 ml (25-30 ml/kg) Nutritional Problem 1. Problem Problem Impaired nutrient utilization Etiology r/t endocrine dysfunction Signs/Symptoms: aeb Hx DM and Glucose 134. Malnutrition Related to Morbid Obesity Malnutrition related to morbid obesity No Intervention/Recommendation Comments 1.Continue with CCHO 45 gm diet as ordered. 2.Continue anti-hyperglycemia medications for glucose control per MD order. Expected Outcomes/Goals Expected Outcomes/Goals 1.PO intake to continue to meet >75% of nutritional needs . 2.Monitor PO intake, wt, skin integrity, and nutrition related labs to trend WNL. 3.F/U as low risk in 7 days,
[2019-05-25] MEDS: cefTRIAXone 1 GM in Sodium Chloride 0.9% 50 ML IV SCH (16:33)
== END 2019-05-25 21:50 | DRG 871 ==
LOC: ER 14:04 → MSI 17:45
PROVIDERS: ADMIT Family Medicine; ATTEND Family Medicine
DX: A41.9 Sepsis, unspecified organism (principal); G93.41 Metabolic encephalopathy; N39.0 Urinary tract infection, site not specified; N40.0 Benign prostatic hyperplasia without lower urinary tract symptoms; I10 Essential (primary) hypertension; E86.1 Hypovolemia; E86.0 Dehydration; F03.90 Unspecified dementia, unspecified severity, without behavioral disturbance, psychotic disturbance, mood disturbance, and anxiety; Z82.49 Family history of ischemic heart disease and other diseases of the circulatory system
CPT/HCPCS: 36415-UA; 71045-TC; 80053-TC; 81001-TC; 82150-TC; 82550-TC; 82948-90; 83605; 83690-TC; 84484-TC; 85025-TC; 85610-TC; 85730-TC; 93005; J0696; J1650; J3480; J7030; J7040; J7042; X3904; Z7610